=== PATIENT | female | born 1960 | race Caucasian/White ===

== ENCOUNTER → 2017-02-16 | Outpatient (CLI) | payer OTHER ==
[~2017-02-16] MED LIST: ACLI400A2 PO; ALPR0.257 PO; ASPI-496 PO; BUPR150T20 PO; CLOP75TA PO; FEXO180T5 PO; FLUT16SP PO; GABA-827 PO; GLIP10TA13 PO; HYDR25TA11 PO; IPRA15SP NS; LOSA25TA5 PO; METF10002 PO; METO50TA82 PO; OMEP40CA6 PO; PARO20TA4 PO; PRAV40TA2 PO; ROPI0.2537 PO
== END | disposition home or self-care (01) ==
LOC: CFH 10:43
PROVIDERS: ATTEND Licensed Practical Nurse
DX: Z12.31 Encounter for screening mammogram for malignant neoplasm of breast (principal); Z12.2 Encounter for screening for malignant neoplasm of respiratory organs; I25.10 Atherosclerotic heart disease of native coronary artery without angina pectoris; J98.11 Atelectasis; Z87.891 Personal history of nicotine dependence
CPT/HCPCS: G0202; G0297

== ENCOUNTER → 2017-03-02 | Outpatient (CLI) | payer OTHER | END | disposition home or self-care (01) | LOC: CFH 12:05 | PROVIDERS: ATTEND Internal Medicine Cardiovascular Disease | DX: I50.32 Chronic diastolic (congestive) heart failure (principal) | CPT/HCPCS: 78452; 93017; A9502; J2785 ==

== ENCOUNTER → 2018-01-17 | Outpatient (CLI) | payer OTHER ==
[~2018-01-17] MED LIST changes: +FEXO180T15 PO; -FEXO180T5 PO
== END | disposition home or self-care (01) ==
LOC: CVU 12:18
PROVIDERS: ATTEND Internal Medicine Cardiovascular Disease
DX: I35.8 Other nonrheumatic aortic valve disorders (principal); I44.7 Left bundle-branch block, unspecified; I25.10 Atherosclerotic heart disease of native coronary artery without angina pectoris; I10 Essential (primary) hypertension; I51.7 Cardiomegaly; E11.9 Type 2 diabetes mellitus without complications; E78.5 Hyperlipidemia, unspecified; I25.2 Old myocardial infarction
CPT/HCPCS: C8929

== ENCOUNTER → 2018-09-30 | Outpatient (CLI) | payer OTHER ==
[~2018-09-30] MED LIST changes: -LOSA25TA5 PO; +LOSA25TA6 PO; -ROPI0.2537 PO; +ROPI0.254 PO
== END | disposition home or self-care (01) ==
LOC: CFH 12:45
PROVIDERS: ATTEND Licensed Practical Nurse
DX: Z12.31 Encounter for screening mammogram for malignant neoplasm of breast (principal); Z12.2 Encounter for screening for malignant neoplasm of respiratory organs; I25.10 Atherosclerotic heart disease of native coronary artery without angina pectoris; E11.9 Type 2 diabetes mellitus without complications; J44.9 Chronic obstructive pulmonary disease, unspecified; Z87.891 Personal history of nicotine dependence
CPT/HCPCS: 77067; G0297

== ENCOUNTER 2020-01-08 01:36 | Emergency (ER) | payer MEDICARE ==
[~2020-01-08] VITALS: Ht 147.3 cm; Wt 100.0 kg
[~2020-01-08 01:36] MED LIST changes: -ACLI400A2 PO; +ACLI400A3 PO; -BUPR150T20 PO; +BUPR150T28 PO; -FLUT16SP PO; +FLUT16SP24 PO; +HYDR-826 PO; -HYDR25TA11 PO; +LOSA25TA25 PO; -LOSA25TA6 PO; +OMEP40CA42 PO; -OMEP40CA6 PO
[2020-01-08 01:49] VITALS: BP 106/50
[2020-01-08] MEDS ORDERED: LIDOCAINE 1%, 10ML INFIL ONE (02:00)
[2020-01-08] MEDS ORDERED: CEFAZOLIN 1,000 MG IM ONE (02:00)
[2020-01-08] MEDS ORDERED: BUPIVACAINE 0.25% ONE (02:02)
[2020-01-08] MEDS ORDERED: NEOSPORIN OINT. PKT 1 PACKET ONE (02:02)
[2020-01-08] MEDS ORDERED: CEFAZOLIN 1,000 MG ONE (02:03)
--- NOTE | 2020-01-08 02:15 | NUR ---
Patient brought in by [facility], report given, transcribed to triage note. Assessment completed by provider. Orders placed for imaging and medications. Patient declines head pain, neck pain and declines computed tomography imaging of the head. irrigation technician to bedside as RN completed charted. Midlevel provider to bedside soon after. Patient pressing provider for narcotic pain medication. Informed patient not appropriate due to patient's recent consumption of excessive alcohol. RN provided provider with lidocaine per order. Emergency department refrigeration service technician to bedside to dress the wound.
[2020-01-08] MEDS ORDERED: DIPH,PERTUSS(ACELL),TET VAC/PF 0.5 ML IM-VACC ONE ×2 (03:00→03:14)
--- NOTE | 2020-01-08 04:48 | NUR ---
Patient escorted to bathroom with RN using wheelchair. Patient able to go to the bathroom. Discharge orders already in place, still waiting for malt house operator to provide orthopedic boot.
== END 2020-01-08 05:31 | disposition home or self-care (01) ==
LOC: ED 02:00
DX: S92.512B Displaced fracture of proximal phalanx of left lesser toe(s), initial encounter for open fracture (principal); S91.115A Laceration without foreign body of left lesser toe(s) without damage to nail, initial encounter; E11.9 Type 2 diabetes mellitus without complications; Z87.891 Personal history of nicotine dependence; W17.89XA Other fall from one level to another, initial encounter; Y93.89 Activity, other specified; Y92.009 Unspecified place in unspecified non-institutional (private) residence as the place of occurrence of the external cause; Y99.8 Other external cause status
CPT/HCPCS: 12041; 73660; 90471; 90715; 96372; 99284; J0690

== ENCOUNTER 2020-01-15 05:16 | Day surgery (SDC) | payer MEDICARE ==
[~2020-01-15] VITALS: Ht 147.3 cm; Wt 99.0 kg
[2020-01-15] MEDS ORDERED: LACTATED RINGERS 1,000 ML IV SCH (05:58)
[2020-01-15 05:59] VITALS: BP 132/77
[2020-01-15] MEDS ORDERED: LIDOCAINE-MPF 1%, 2ML INFIL ONE (06:00)
[2020-01-15] MEDS ORDERED: LIDOCAINE-MPF 1%, 2ML ONE (06:02)
[2020-01-15] MEDS ORDERED: MIDAZOLAM 1 MG/ML, 2ML ONE (06:39)
[2020-01-15] MEDS ORDERED: FENTANYL PF 100 MCG/2ML ONE (06:39)
[2020-01-15] MEDS ORDERED: FENTANYL PF 250 MCG/5ML ONE (06:40)
[2020-01-15] MEDS ORDERED: SUCCINYLCHOLINE 20 MG/ML, 10ML ONE (06:40)
[2020-01-15] MEDS ORDERED: PROPOFOL 10 MG/ML, 20ML ONE (06:40)
[2020-01-15] MEDS ORDERED: BREO ELLIPTA INH (06:41)
[2020-01-15] MEDS ORDERED: CEPH-368 PO (06:41)
[2020-01-15] MEDS ORDERED: BUPR200T31 PO (06:41)
[2020-01-15] MEDS ORDERED: CANA1TAB4 PO (06:41)
[2020-01-15] MEDS ORDERED: GABAPENTIN PO (06:41)
[2020-01-15] MEDS ORDERED: CARV-39 PO (06:41)
[2020-01-15] MEDS ORDERED: ALBUTEROL INH (06:41)
[2020-01-15] MEDS ORDERED: ISOS120T4 PO (06:41)
[2020-01-15] MEDS ORDERED: LIRA0.6P SQ (06:41)
[2020-01-15] MEDS ORDERED: FURO-93 PO (06:41)
[2020-01-15] MEDS ORDERED: SPIRIVA INH (06:41)
[2020-01-15] MEDS ORDERED: NIAC750T4 PO (06:41)
[2020-01-15] MEDS ORDERED: VITAMIN D3 PO (06:41)
[2020-01-15 06:55] VITALS: BP 132/77
[2020-01-15 06:59] LABS: ALANINE AMINOTRANSFERASE 24 U/L (12-78); ALBUMIN 3.4 g/dL (3.4-5.0); ANION GAP 5 mmol/L (5-15); CALCIUM 9.4 mg/dL (8.5-10.1); CHLORIDE 105 mmol/L (98-107); CREATININE 0.68 mg/dL (0.55-1.02)
[2020-01-15] MEDS ORDERED: HYDROmorphone 2 MG/ML, 1ML IVPush PRN (07:00)
[2020-01-15] MEDS ORDERED: PROMETHAZINE 25 MG/ML, 1ML IV PRN (07:00)
[2020-01-15] MEDS ORDERED: LABETALOL 5MG/ML, 20ML IV PRN (07:00)
[2020-01-15] MEDS ORDERED: GABAPENTIN 300 MG CAPSULE PO ONE (07:00)
[2020-01-15] MEDS ORDERED: FENTANYL PF 100 MCG/2ML IV PRN (07:00)
[2020-01-15] MEDS ORDERED: OXYcodone 5 MG/5 ML ORAL.SOL UDC PO PRN (07:00)
[2020-01-15] MEDS ORDERED: ONDANSETRON 2MG/ML, 2ML IV PRN (07:00)
[2020-01-15] MEDS ORDERED: hydrALAzine 20 MG/ML, 1ML IV PRN (07:00)
[2020-01-15] MEDS ORDERED: ACETAMINOPHEN 500 MG TABLET PO ONE (07:00)
[2020-01-15] MEDS ORDERED: OxyconTIN ER 20 MG TAB.ER PO ONE (07:00)
[2020-01-15] MEDS ORDERED: FAMOTIDINE 20 MG TABLET PO ONE (07:00)
[2020-01-15 07:01] LABS: ALKALINE PHOSPHATASE 92 U/L (45-117); BILIRUBIN,TOTAL 0.4 mg/dL (0.2-1.0); TOTAL PROTEIN 6.7 g/dL (6.4-8.2)
[2020-01-15 07:03] LABS: PROTHROMBIN TIME 10.6 Seconds (9.6-11.5)
[2020-01-15] MEDS ORDERED: BUPIVACAINE/PF 0.5% ONE (07:03)
[2020-01-15] MEDS ORDERED: LIDOCAINE 1%, 20ML ONE (07:03)
[2020-01-15] MEDS ORDERED: CEFAZOLIN 1,000 MG ONE ×3 (07:07→07:08)
== END 2020-01-15 09:50 | disposition home or self-care (01) ==
LOC: OUT 05:16
PROVIDERS: ATTEND Orthopaedic Surgery
DX: S92.512A Displaced fracture of proximal phalanx of left lesser toe(s), initial encounter for closed fracture (principal); E11.40 Type 2 diabetes mellitus with diabetic neuropathy, unspecified; I25.10 Atherosclerotic heart disease of native coronary artery without angina pectoris; J45.909 Unspecified asthma, uncomplicated; M19.90 Unspecified osteoarthritis, unspecified site; G47.33 Obstructive sleep apnea (adult) (pediatric); Z79.01 Long term (current) use of anticoagulants; Z79.02 Long term (current) use of antithrombotics/antiplatelets; Z79.891 Long term (current) use of opiate analgesic; Z79.899 Other long term (current) drug therapy; Z87.891 Personal history of nicotine dependence; Z99.81 Dependence on supplemental oxygen; Z82.61 Family history of arthritis; Z82.49 Family history of ischemic heart disease and other diseases of the circulatory system; Z82.3 Family history of stroke; X58.XXXA Exposure to other specified factors, initial encounter; Y93.89 Activity, other specified; Y92.89 Other specified places as the place of occurrence of the external cause; Y99.8 Other external cause status
CPT/HCPCS: 28153; 80053; 82962; 85610; 85730; 93005; C1713; J0690; J2250; J2704; J3010; J7120; J0330

== ENCOUNTER 2020-03-15 07:23 | Day surgery (SDC) | payer MEDICARE ==
[~2020-03-15] VITALS: Ht 147.3 cm; Wt 97.8 kg
[~2020-03-15 07:23] MED LIST changes: +ALBUTEROL INH; +BREO ELLIPTA INH; +BUPR200T31 PO; +CANA1TAB4 PO; +CARV-39 PO; +CEPH-368 PO; +FURO-93 PO; +GABAPENTIN PO; +ISOS120T4 PO; +LIRA0.6P SQ; +NIAC750T4 PO; +SPIRIVA INH; +VITAMIN D3 PO
[2020-03-15] MEDS ORDERED: CHLORHEXIDINE 15 ML UDC ONE (08:01)
[2020-03-15 08:03] VITALS: BP 138/78
[2020-03-15] MEDS ORDERED: FLUT9.9S16 NS (08:26)
[2020-03-15] MEDS ORDERED: ALPR0.254 PO (08:26)
[2020-03-15] MEDS ORDERED: FLUT1AER INH (08:26)
[2020-03-15] MEDS ORDERED: PRAV40TA2 PO (08:26)
[2020-03-15] MEDS ORDERED: LOSA100T14 PO (08:26)
[2020-03-15] MEDS ORDERED: TIOT18CA INH (08:26)
[2020-03-15] MEDS ORDERED: GABA800T5 PO (08:26)
[2020-03-15] MEDS ORDERED: CANA1TAB8 PO (08:26)
[2020-03-15] MEDS ORDERED: CHOL10003 PO (08:26)
[2020-03-15] MEDS ORDERED: CHLORHEXIDINE 15 ML UDC MM ONE (08:30)
[2020-03-15] MEDS ORDERED: LACTATED RINGERS 1,000 ML IV SCH (08:49)
[2020-03-15 09:10] LABS: BASOPHILS # (AUTO) 0.05 x10^3/uL (0-0.1); BASOPHILS % (AUTO) 1 % (0-1); EOSINOPHILS % (AUTO) 0 % (1-7); LYMPHOCYTES % (AUTO) 18 % (22-44); MD NO; MEAN CORPUSCULAR HEMOGLOBIN 30.2 pg (27.0-34.8); MEAN CORPUSCULAR HGB CONC 33.3 g/dL (32.4-35.8); MEAN CORPUSCULAR VOLUME 90.5 fL (80-100); MEAN PLATELET VOLUME 8.4 fL (7.4-10.4); MONOCYTES # (AUTO) 0.66 x10^3/uL (0.2-0.8); MONOCYTES % (AUTO) 8 % (2-9); NEUTROPHILS # (AUTO) 5.89 x10^3/uL (1.8-6.8); NEUTROPHILS % (AUTO) 74 % (42-75); PLATELET COUNT 180 x10^3/uL (130-400); RED BLOOD COUNT 4.87 x10^6/uL (3.82-5.3); RED CELL DISTRIBUTION WIDTH 14.5 % (9.6-15.2)
[2020-03-15 09:15] LABS: ALANINE AMINOTRANSFERASE 21 U/L (12-78); ALBUMIN 3.6 g/dL (3.4-5.0); ANION GAP 7 mmol/L (5-15); CALCIUM 8.8 mg/dL (8.5-10.1); CHLORIDE 106 mmol/L (98-107); CREATININE 0.68 mg/dL (0.55-1.02)
[2020-03-15 09:17] LABS: ALKALINE PHOSPHATASE 77 U/L (45-117); BILIRUBIN,TOTAL 0.5 mg/dL (0.2-1.0); TOTAL PROTEIN 6.8 g/dL (6.4-8.2)
[2020-03-15] MEDS ORDERED: LIDOCAINE 1%, 20ML ONE (09:58)
[2020-03-15] MEDS ORDERED: BUPIVACAINE/PF 0.5% ONE (09:58)
[2020-03-15] MEDS ORDERED: MIDAZOLAM 1 MG/ML, 2ML ONE (10:02)
[2020-03-15] MEDS ORDERED: FENTANYL PF 100 MCG/2ML ONE (10:02)
[2020-03-15] MEDS ORDERED: CEFAZOLIN 1,000 MG ONE (10:03)
[2020-03-15] MEDS ORDERED: PROPOFOL 10 MG/ML, 20ML ONE (10:03)
[2020-03-15] MEDS ORDERED: PROMETHAZINE 25 MG/ML, 1ML IV PRN (10:30)
[2020-03-15] MEDS ORDERED: DIAZEPAM 5 MG/ML, 2ML IVPush PRN (10:30)
[2020-03-15] MEDS ORDERED: OXYcodone 5 MG/5 ML ORAL.SOL UDC PO PRN (10:30)
[2020-03-15] MEDS ORDERED: ALBUTEROL SULFATE 2.5 MG/3 ML NPPB PRN (10:30)
[2020-03-15] MEDS ORDERED: hydrALAzine 20 MG/ML, 1ML IV PRN (10:30)
[2020-03-15] MEDS ORDERED: KETOROLAC 30 MG/1 ML IV PRN (10:30)
[2020-03-15] MEDS ORDERED: MEPERIDINE/PF 25MG/0.5ML IVPush PRN (10:30)
[2020-03-15] MEDS ORDERED: HYDROmorphone 2 MG/ML, 1ML IVPush PRN (10:30)
[2020-03-15] MEDS ORDERED: FENTANYL PF 100 MCG/2ML IV PRN (10:30)
[2020-03-15] MEDS ORDERED: ACETAMINOPHEN 325 MG TABLET PO PRN (10:30)
[2020-03-15] MEDS ORDERED: LABETALOL 5MG/ML, 20ML IV PRN (10:30)
[2020-03-15] MEDS ORDERED: VANCOMYCIN 500 MG ONE (10:40)
[2020-03-15] MEDS ORDERED: TOBRAMYCIN SULFATE 1.2 GM IMP ONE (10:40)
== END 2020-03-15 12:35 | disposition home or self-care (01) ==
LOC: OUT 07:23
PROVIDERS: ATTEND Orthopaedic Surgery
DX: L76.82 Other postprocedural complications of skin and subcutaneous tissue (principal); Y83.8 Other surgical procedures as the cause of abnormal reaction of the patient, or of later complication, without mention of misadventure at the time of the procedure; I96 Gangrene, not elsewhere classified; M96.89 Other intraoperative and postprocedural complications and disorders of the musculoskeletal system; I25.10 Atherosclerotic heart disease of native coronary artery without angina pectoris; M19.90 Unspecified osteoarthritis, unspecified site; E11.9 Type 2 diabetes mellitus without complications; Z79.899 Other long term (current) drug therapy; E66.01 Morbid (severe) obesity due to excess calories; G47.30 Sleep apnea, unspecified; Z68.42 Body mass index [BMI] 45.0-49.9, adult; Z91.048 Other nonmedicinal substance allergy status; Z88.5 Allergy status to narcotic agent; Z88.8 Allergy status to other drugs, medicaments and biological substances; Z87.891 Personal history of nicotine dependence; Z72.89 Other problems related to lifestyle; Z82.49 Family history of ischemic heart disease and other diseases of the circulatory system; Z82.3 Family history of stroke
CPT/HCPCS: 28288; 28820; 80053; 82962; 85025; 87015; 87070; 87075; 87102; 87116; 87205; 87206; J0690; J2250; J2704; J3010; J3260; J3370; J7120

== ENCOUNTER 2020-04-07 13:19 | Emergency (ER) | payer MEDICARE ==
[~2020-04-07] VITALS: Ht 142.2 cm; Wt 94.4 kg
[~2020-04-07 13:19] MED LIST changes: +ALPR0.254 PO; +CANA1TAB8 PO; +CHOL10003 PO; +FLUT1AER INH; +FLUT9.9S16 NS; +GABA800T5 PO; +LOSA100T14 PO; +TIOT18CA INH
--- NOTE | 2020-04-07 14:24 | NUR ---
[employer]: PT ROOM VIA WHEELCHAIR FROM [facility]
--- NOTE | 2020-04-07 14:46 | NUR ---
PT C/O DENTAL PAIN RT UPPER JAW PAIN W/ RT FACIAL SWELLING. PAIN STARTED YESTERDAY. TOOK TYLENOL - LAST DOSE 1000 TODAY. DOESN'T HAVE A DENTIST.
[2020-04-07 14:53] LABS: BASOPHILS # (AUTO) 0.07 x10^3/uL (0-0.1); BASOPHILS % (AUTO) 1 % (0-1); EOSINOPHILS # (AUTO) 0.01 x10^3/uL (0-0.4); EOSINOPHILS % (AUTO) 0 % (1-7); LYMPHOCYTES # (AUTO) 1.17 x10^3/uL (1-3.4); LYMPHOCYTES % (AUTO) 9 % (22-44); MD NO; MEAN CORPUSCULAR HEMOGLOBIN 29.4 pg (27.0-34.8); MEAN CORPUSCULAR HGB CONC 32.8 g/dL (32.4-35.8); MEAN CORPUSCULAR VOLUME 89.6 fL (80-100); MEAN PLATELET VOLUME 8.6 fL (7.4-10.4); MONOCYTES # (AUTO) 0.87 x10^3/uL (0.2-0.8); MONOCYTES % (AUTO) 7 % (2-9); NEUTROPHILS # (AUTO) 10.26 x10^3/uL (1.8-6.8); NEUTROPHILS % (AUTO) 83 % (42-75); PLATELET COUNT 234 x10^3/uL (130-400); RED BLOOD COUNT 5.61 x10^6/uL (3.82-5.3); RED CELL DISTRIBUTION WIDTH 14.6 % (9.6-15.2)
[2020-04-07] MEDS ORDERED: OXYcodone/APAP 5/325MG TABLET ONE (14:53)
[2020-04-07 14:59] LABS: ALBUMIN 3.7 g/dL (3.4-5.0); ANION GAP 7 mmol/L (5-15); CALCIUM 8.9 mg/dL (8.5-10.1); CHLORIDE 107 mmol/L (98-107); CREATININE 0.82 mg/dL (0.55-1.02)
[2020-04-07] MEDS ORDERED: SODIUM CHLORIDE FLUSH 10ML SYR IVF ONE (15:00)
[2020-04-07] MEDS ORDERED: OXYcodone/APAP 5/325MG TABLET PO ONE (15:00)
[2020-04-07] MEDS ORDERED: CLINDAMYCIN PMX 300MG/50ML 50 ML IV ONE (15:00)
--- NOTE | 2020-04-07 15:00 | NUR ---
CLEOCIN ORDERED FROM PHARMACY
--- NOTE | 2020-04-07 15:39 | NUR ---
TO CT PER [facility]
[2020-04-07] MEDS ORDERED: FLUT1BLS INH (15:43)
[2020-04-07] MEDS ORDERED: ISOS60TA36 PO (15:43)
[2020-04-07] MEDS ORDERED: BUPR200T PO (15:43)
[2020-04-07] MEDS ORDERED: OMNIPAQUE 350 MG/ML, 75ML BOTTLE ONE (15:57)
[2020-04-07 17:09] VITALS: BP 175/63
== END 2020-04-07 17:37 | disposition home or self-care (01) ==
LOC: ED 17:15
DX: K04.7 Periapical abscess without sinus (principal); K02.9 Dental caries, unspecified; E11.9 Type 2 diabetes mellitus without complications; F17.200 Nicotine dependence, unspecified, uncomplicated
CPT/HCPCS: 36415; 70487; 80048; 82040; 85025; 96365; 99285; Q9967

== ENCOUNTER → 2020-06-07 | Outpatient (CLI) | payer MEDICARE ==
[~2020-06-07] MED LIST changes: +BUPR200T PO; +FLUT1BLS INH; +ISOS60TA36 PO
== END | disposition home or self-care (01) ==
LOC: WOUND 08:22
PROVIDERS: ATTEND Family Medicine
DX: T87.81 Dehiscence of amputation stump (principal); S91.105A Unspecified open wound of left lesser toe(s) without damage to nail, initial encounter; E11.51 Type 2 diabetes mellitus with diabetic peripheral angiopathy without gangrene; E11.42 Type 2 diabetes mellitus with diabetic polyneuropathy; I89.0 Lymphedema, not elsewhere classified; I11.0 Hypertensive heart disease with heart failure; I50.812 Chronic right heart failure; I25.2 Old myocardial infarction; J45.909 Unspecified asthma, uncomplicated; M19.90 Unspecified osteoarthritis, unspecified site; G47.30 Sleep apnea, unspecified; G25.81 Restless legs syndrome; E66.01 Morbid (severe) obesity due to excess calories; F41.9 Anxiety disorder, unspecified; Z68.41 Body mass index [BMI] 40.0-44.9, adult; Z90.89 Acquired absence of other organs; Y83.5 Amputation of limb(s) as the cause of abnormal reaction of the patient, or of later complication, without mention of misadventure at the time of the procedure; X58.XXXA Exposure to other specified factors, initial encounter; Y92.238 Other place in hospital as the place of occurrence of the external cause; Y93.89 Activity, other specified; Y99.8 Other external cause status
CPT/HCPCS: 97597

== ENCOUNTER → 2020-06-21 | Outpatient (CLI) | payer MEDICARE | END | disposition home or self-care (01) | LOC: WOUND 09:42 | PROVIDERS: ATTEND Family Medicine | DX: T87.81 Dehiscence of amputation stump (principal); S91.105D Unspecified open wound of left lesser toe(s) without damage to nail, subsequent encounter; E11.51 Type 2 diabetes mellitus with diabetic peripheral angiopathy without gangrene; E11.42 Type 2 diabetes mellitus with diabetic polyneuropathy; I89.0 Lymphedema, not elsewhere classified; I11.0 Hypertensive heart disease with heart failure; I50.812 Chronic right heart failure; I25.2 Old myocardial infarction; J45.909 Unspecified asthma, uncomplicated; M19.90 Unspecified osteoarthritis, unspecified site; G47.30 Sleep apnea, unspecified; G25.81 Restless legs syndrome; E66.01 Morbid (severe) obesity due to excess calories; F41.9 Anxiety disorder, unspecified; Z68.41 Body mass index [BMI] 40.0-44.9, adult; Z90.89 Acquired absence of other organs; Y83.5 Amputation of limb(s) as the cause of abnormal reaction of the patient, or of later complication, without mention of misadventure at the time of the procedure; X58.XXXD Exposure to other specified factors, subsequent encounter | CPT/HCPCS: 97597 ==

== ENCOUNTER → 2020-06-28 | Outpatient (CLI) | payer MEDICARE | END | disposition home or self-care (01) | LOC: WOUND 12:58 | PROVIDERS: ATTEND Family Medicine | DX: T87.81 Dehiscence of amputation stump (principal); S91.105D Unspecified open wound of left lesser toe(s) without damage to nail, subsequent encounter; E11.51 Type 2 diabetes mellitus with diabetic peripheral angiopathy without gangrene; I89.0 Lymphedema, not elsewhere classified; E11.42 Type 2 diabetes mellitus with diabetic polyneuropathy; I11.0 Hypertensive heart disease with heart failure; I50.32 Chronic diastolic (congestive) heart failure; I25.10 Atherosclerotic heart disease of native coronary artery without angina pectoris; I25.2 Old myocardial infarction; J45.909 Unspecified asthma, uncomplicated; M19.90 Unspecified osteoarthritis, unspecified site; G25.81 Restless legs syndrome; E66.01 Morbid (severe) obesity due to excess calories; G47.30 Sleep apnea, unspecified; F41.9 Anxiety disorder, unspecified; Z68.41 Body mass index [BMI] 40.0-44.9, adult; Z79.82 Long term (current) use of aspirin; X58.XXXD Exposure to other specified factors, subsequent encounter; Y83.5 Amputation of limb(s) as the cause of abnormal reaction of the patient, or of later complication, without mention of misadventure at the time of the procedure | CPT/HCPCS: 97597 ==

== ENCOUNTER → 2020-07-05 | Outpatient (CLI) | payer MEDICARE | END | disposition home or self-care (01) | LOC: WOUND 13:51 | PROVIDERS: ATTEND Family Medicine | DX: T87.81 Dehiscence of amputation stump (principal); E11.51 Type 2 diabetes mellitus with diabetic peripheral angiopathy without gangrene; I89.0 Lymphedema, not elsewhere classified; E11.42 Type 2 diabetes mellitus with diabetic polyneuropathy; I11.0 Hypertensive heart disease with heart failure; I50.812 Chronic right heart failure; I25.10 Atherosclerotic heart disease of native coronary artery without angina pectoris; I25.2 Old myocardial infarction; J45.909 Unspecified asthma, uncomplicated; M19.90 Unspecified osteoarthritis, unspecified site; G47.30 Sleep apnea, unspecified; G25.81 Restless legs syndrome; E66.01 Morbid (severe) obesity due to excess calories; F41.9 Anxiety disorder, unspecified; Z68.41 Body mass index [BMI] 40.0-44.9, adult; Y83.5 Amputation of limb(s) as the cause of abnormal reaction of the patient, or of later complication, without mention of misadventure at the time of the procedure | CPT/HCPCS: 97597 ==

== ENCOUNTER → 2020-07-12 | Outpatient (CLI) | payer MEDICARE | END | disposition home or self-care (01) | LOC: WOUND 14:53 | PROVIDERS: ATTEND Family Medicine | DX: T87.81 Dehiscence of amputation stump (principal); E11.51 Type 2 diabetes mellitus with diabetic peripheral angiopathy without gangrene; I89.0 Lymphedema, not elsewhere classified; E11.42 Type 2 diabetes mellitus with diabetic polyneuropathy; I11.0 Hypertensive heart disease with heart failure; I50.812 Chronic right heart failure; I25.10 Atherosclerotic heart disease of native coronary artery without angina pectoris; I25.2 Old myocardial infarction; J45.909 Unspecified asthma, uncomplicated; M19.90 Unspecified osteoarthritis, unspecified site; G47.30 Sleep apnea, unspecified; G25.81 Restless legs syndrome; F41.9 Anxiety disorder, unspecified; E66.01 Morbid (severe) obesity due to excess calories; Z68.41 Body mass index [BMI] 40.0-44.9, adult; Z79.82 Long term (current) use of aspirin; Y83.5 Amputation of limb(s) as the cause of abnormal reaction of the patient, or of later complication, without mention of misadventure at the time of the procedure | CPT/HCPCS: G0463 ==

== ENCOUNTER → 2020-07-26 | Outpatient (CLI) | payer MEDICARE | END | disposition home or self-care (01) | LOC: WOUND 12:45 | PROVIDERS: ATTEND Family Medicine | DX: T87.81 Dehiscence of amputation stump (principal); E11.51 Type 2 diabetes mellitus with diabetic peripheral angiopathy without gangrene; E11.42 Type 2 diabetes mellitus with diabetic polyneuropathy; I11.0 Hypertensive heart disease with heart failure; I50.812 Chronic right heart failure; I25.2 Old myocardial infarction; I89.0 Lymphedema, not elsewhere classified; J45.909 Unspecified asthma, uncomplicated; M19.90 Unspecified osteoarthritis, unspecified site; G25.81 Restless legs syndrome; I25.10 Atherosclerotic heart disease of native coronary artery without angina pectoris; G47.30 Sleep apnea, unspecified; E66.01 Morbid (severe) obesity due to excess calories; F41.9 Anxiety disorder, unspecified; F17.200 Nicotine dependence, unspecified, uncomplicated; Z68.41 Body mass index [BMI] 40.0-44.9, adult; Z90.89 Acquired absence of other organs; Y83.5 Amputation of limb(s) as the cause of abnormal reaction of the patient, or of later complication, without mention of misadventure at the time of the procedure | CPT/HCPCS: G0463 ==

== ENCOUNTER 2020-07-31 10:57 | Day surgery (SDC) | payer MEDICARE ==
[~2020-07-31] VITALS: Ht 147.3 cm; Wt 94.0 kg
[2020-07-31 11:34] VITALS: BP 124/72
[2020-07-31] MEDS ORDERED: VISIPAQUE 270 MG/ML, 50ML BOTTLE ONE (12:00)
[2020-07-31] MEDS ORDERED: LACTATED RINGERS 1,000 ML IV SCH (12:00)
[2020-07-31 12:22] LABS: CHLORIDE 112 mmol/L (98-107)
[2020-07-31 12:28] LABS: ANION GAP 5 mmol/L (5-15); CALCIUM 9.5 mg/dL (8.5-10.1); CREATININE 0.77 mg/dL (0.55-1.02)
[2020-07-31 12:29] LABS: BASOPHILS % (AUTO) 1 % (0-1); EOSINOPHILS % (AUTO) 1 % (1-7); LYMPHOCYTES % (AUTO) 23 % (22-44); MEAN CORPUSCULAR HGB CONC 32.8 g/dL (32.4-35.8); MEAN PLATELET VOLUME 9.4 fL (7.4-10.4); MONOCYTES % (AUTO) 10 % (2-9); NEUTROPHILS % (AUTO) 65 % (42-75); PLATELET COUNT 157 x10^3/uL (130-400); RED BLOOD COUNT 5.01 x10^6/uL (3.82-5.3); RED CELL DISTRIBUTION WIDTH 15.2 % (9.6-15.2)
[2020-07-31 12:37] LABS: MD NO
[2020-07-31] MEDS ORDERED: NALOXONE 1 MG/ML, 2ML ONE (12:47)
[2020-07-31] MEDS ORDERED: HEPARIN 1,000 UNITS/ML, 10ML ONE (12:47)
[2020-07-31] MEDS ORDERED: FENTANYL PF 100 MCG/2ML ONE (12:47)
[2020-07-31] MEDS ORDERED: PROTAMINE SULFATE 10 MG/ML, 25ML ONE (12:47)
[2020-07-31] MEDS ORDERED: MIDAZOLAM 1 MG/ML, 5ML ONE (12:47)
[2020-07-31] MEDS ORDERED: FLUMAZENIL 0.1 MG/1 ML, 5ML ONE (12:47)
[2020-07-31] MEDS ORDERED: LIDOCAINE 1%, 10ML ONE (13:03)
[2020-07-31] MEDS ORDERED: SODIUM CHLORIDE 0.9% 1,000 ML IV SCH (15:00)
[2020-07-31] MEDS ORDERED: OXYcodone IR 5MG TABLET PO PRN (15:30)
[2020-07-31] MEDS ORDERED: GABAPENTIN 400 MG CAPSULE PO SCH (16:00)
[2020-07-31] MEDS ORDERED: GABAPENTIN 400 MG CAPSULE PO ONE (16:00)
== END 2020-07-31 16:55 | disposition home or self-care (01) ==
LOC: OUT 10:57
PROVIDERS: ATTEND Surgery
DX: I70.213 Atherosclerosis of native arteries of extremities with intermittent claudication, bilateral legs (principal); I25.10 Atherosclerotic heart disease of native coronary artery without angina pectoris; F41.9 Anxiety disorder, unspecified; J45.909 Unspecified asthma, uncomplicated; E78.5 Hyperlipidemia, unspecified; E11.9 Type 2 diabetes mellitus without complications; F17.210 Nicotine dependence, cigarettes, uncomplicated; F12.90 Cannabis use, unspecified, uncomplicated; Z88.5 Allergy status to narcotic agent; Z91.018 Allergy to other foods; Z88.8 Allergy status to other drugs, medicaments and biological substances; Z79.82 Long term (current) use of aspirin; Z79.899 Other long term (current) drug therapy; Z98.890 Other specified postprocedural states; Z72.89 Other problems related to lifestyle
CPT/HCPCS: 36246; 36415; 37221; 75625; 75716; 80048; 85025; 93971; 99156; 99157; C1725; C1760; C1769; C1876; C1894; J1644; J2250; J3010; Q9966; 36140; 75710; J2720; J2310